=== PATIENT | female | born 1965 | race Caucasian/White ===

== ENCOUNTER 2018-03-13 21:34 | Emergency (ER) | payer OTHER ==
[~2018-03-13] VITALS: Ht 162.6 cm; Wt 128.8 kg
[2018-03-13 23:28] LABS: ABSOLUTE NEUTROPHILS 3.8 thou/uL (1.4-8.2); BASOPHILS 0.5 % (0.0-2.0); EOSINOPHILS 1.7 % (0.0-3.0); HEMATOCRIT 38.4 % (37.0-47.0); LYMPHOCYTES 36.2 % (24.0-44.0); MCH 29.5 pg (26.0-34.0); MCHC 33.9 g/dL (28.0-37.0); MCV 86.9 fL (80.0-100.0); MONOCYTES 8.2 % (1.0-8.0); PLATELET COUNT 227 thou/uL (150-400); POLYS 53.4 % (36.0-66.0); RBC 4.42 mil/uL (4.20-5.00); RDW 13.5 % (10.5-14.5); WBC 7.2 thou/uL (4.0-11.0)
[2018-03-13 23:39] LABS: CREATININE 0.9 mg/dL (0.6-1.0); POTASSIUM 3.5 mmol/L (3.5-5.1)
[2018-03-14 00:36] VITALS: BP 168/87
[2018-03-14] MEDS ORDERED: CLONIDINE0.1 PO (17:33)
== END 2018-03-14 00:38 | disposition home or self-care (01) ==
LOC: ER 21:34
PROVIDERS: Emergency Medicine
DX: G43.909 Migraine, unspecified, not intractable, without status migrainosus (principal); I10 Essential (primary) hypertension; F17.210 Nicotine dependence, cigarettes, uncomplicated; Z88.2 Allergy status to sulfonamides

== ENCOUNTER 2018-03-14 17:13 | Emergency (ER) | payer OTHER ==
[~2018-03-14] VITALS: Ht 162.6 cm; Wt 127.9 kg
[2018-03-14] MEDS ORDERED: CLONIDINE0.1 PO (17:33)
[2018-03-14 18:08] VITALS: BP 176/91
== END 2018-03-14 18:12 | disposition home or self-care (01) ==
LOC: ER 17:13
DX: I10 Essential (primary) hypertension (principal); G43.909 Migraine, unspecified, not intractable, without status migrainosus; E66.9 Obesity, unspecified; Z68.42 Body mass index [BMI] 45.0-49.9, adult; F17.210 Nicotine dependence, cigarettes, uncomplicated; Z98.890 Other specified postprocedural states

== ENCOUNTER 2018-08-27 14:53 | Emergency (ER) | payer OTHER ==
[~2018-08-27] VITALS: Ht 162.6 cm; Wt 136.1 kg
[~2018-08-27 14:53] MED LIST: CLONIDINE0.1 PO
[2018-08-27 15:28] LABS: ABSOLUTE NEUTROPHILS 6.8 thou/uL (1.4-8.2); BASOPHILS 0.2 % (0.0-2.0); EOSINOPHILS 0.8 % (0.0-3.0); HEMATOCRIT 41.4 % (37.0-47.0); HEMOGLOBIN 13.9 gm/dL (12.0-15.0); LYMPHOCYTES 17.2 % (24.0-44.0); MCH 29.8 pg (26.0-34.0); MCHC 33.6 g/dL (28.0-37.0); MCV 88.8 fL (80.0-100.0); MONOCYTES 6.5 % (1.0-8.0); PLATELET COUNT 242 thou/uL (150-400); POLYS 75.3 % (36.0-66.0); RBC 4.66 mil/uL (4.20-5.00)
[2018-08-27 15:35] LABS: ANION GAP 8 mmol/L (7-16); BUN 11 mg/dL (7-18); CALCIUM 8.6 mg/dL (8.5-10.1); CHLORIDE 101 mmol/L (98-107); CO2 28 mmol/L (21-32); CREATININE 0.9 mg/dL (0.6-1.0); GLUCOSE 173 mg/dL (74-106); SODIUM 137 mmol/L (136-145)
[2018-08-27 15:44] LABS: ALBUMIN 3.1 g/dL (3.4-5.0); SGOT 22 U/L (15-37); SGPT 39 U/L (30-65); TOTAL BILIRUBIN 0.4 mg/dL (<0.1-1.0); TOTAL PROTEIN 6.8 g/dL (6.4-8.2); TROPONIN-I <0.06 ng/mL (<0.06)
[2018-08-27] MEDS ORDERED: ANTIVERT25 MG PO (15:51)
[2018-08-27] MEDS ORDERED: METFORMIN HCL500 MG PO (15:51)
[2018-08-27] MEDS ORDERED: NEURONTIN 300300 M1 PO (15:52)
[2018-08-27] MEDS ORDERED: PROZAC20 MG PO (15:52)
[2018-08-27] MEDS ORDERED: LISINOPRIL20 MG PO (15:52)
[2018-08-27] MEDS ORDERED: AZITHROMYCIN250 MG PO (17:23)
[2018-08-27 17:49] VITALS: BP 151/75
--- NOTE | 2018-08-29 15:02 | EKG ---
[place] [address] [address] [place] [address] ELECTROCARDIOGRAM REPORT Name: ALIZA ARIZMENDI [facility] [id number] Admission: 08/27/18 Attend Phys: Discharge: 08/27/18 Date of : 61 Report #: [id number] THIS REPORT FOR: //name// [facility] ED Test Date: 2018-08-27 Test Time: 15:03:35 Pat Name: ALIZA ARIZMENDI Department: Room: Gender: F It Audit Manager: : 1965 Requested By: Leatha Agarwal Order Number: [id number] MD: Rakesh Lazaro Measurements Intervals [place] Rate: 51 P: 20 [place]: 176 QRS: -12 QRSD: 100 T: 22 QT: 416 QTc: 384 Interpretive Statements Sinus rhythm Probable left atrial enlargement Low voltage, precordial leads RSR' in V1 or V2, right VCD or RVH No previous ECG available for comparison Electronically Signed On 08-29-2018 15:02:42 PRODUCTION STATISTICAL CLERK by Rakesh Lazaro [email or web address] <ELECTRONICALLY SIGNED> By: Rakesh Lazaro MD 08/29/18 1502 1503 1503 Rakesh Lazaro MD /KAITLIN
== END 2018-08-27 17:50 | disposition home or self-care (01) ==
LOC: ER 14:53
PROVIDERS: Emergency Medicine
DX: J18.9 Pneumonia, unspecified organism (principal); I10 Essential (primary) hypertension; F17.210 Nicotine dependence, cigarettes, uncomplicated

== ENCOUNTER 2019-02-22 14:45 | Emergency (ER) | payer OTHER ==
[~2019-02-22] VITALS: Ht 157.5 cm; Wt 135.2 kg
[~2019-02-22 14:45] MED LIST changes: +ANTIVERT25 MG PO; +AZITHROMYCIN250 MG PO; +LISINOPRIL20 MG PO; +METFORMIN HCL500 MG PO; +NEURONTIN 300300 M1 PO; +PROZAC20 MG PO
[2019-02-22 18:48] VITALS: BP 103/57
== END 2019-02-22 18:50 | disposition home or self-care (01) ==
LOC: ER 14:45
DX: S09.8XXA Other specified injuries of head, initial encounter (principal); M54.5 Low back pain; F17.210 Nicotine dependence, cigarettes, uncomplicated; I10 Essential (primary) hypertension; Z88.2 Allergy status to sulfonamides; Z98.890 Other specified postprocedural states; W18.39XA Other fall on same level, initial encounter; Y92.89 Other specified places as the place of occurrence of the external cause; Y93.89 Activity, other specified; Y99.8 Other external cause status

== ENCOUNTER 2019-03-24 15:36 | Emergency (ER) | payer OTHER ==
[~2019-03-24] VITALS: Ht 157.5 cm; Wt 135.2 kg
[~2019-03-24 15:36] MED LIST changes: +CELEXA40 MG PO; +LIPITOR10 MG PO; +LOPRESSOR25 PO; +PRAZOSIN 1 MG CA1 M1 PO; +TRAZODONE HCL100 MG PO
[2019-03-24] MEDS ORDERED: NAPROSYN500 MG PO (17:02)
[2019-03-24] MEDS ORDERED: REGLAN 10 MG TA10 MG PO (17:02)
[2019-03-24 18:50] VITALS: BP 120/76
== END 2019-03-24 18:50 | disposition home or self-care (01) ==
LOC: ER 15:36
DX: G43.909 Migraine, unspecified, not intractable, without status migrainosus (principal); I10 Essential (primary) hypertension; F41.9 Anxiety disorder, unspecified; R42 Dizziness and giddiness; F32.9 Major depressive disorder, single episode, unspecified; F43.10 Post-traumatic stress disorder, unspecified; F17.210 Nicotine dependence, cigarettes, uncomplicated; E11.9 Type 2 diabetes mellitus without complications; Z79.84 Long term (current) use of oral hypoglycemic drugs; Z79.899 Other long term (current) drug therapy; Z88.2 Allergy status to sulfonamides

== ENCOUNTER 2019-04-16 21:24 | Emergency (ER) | payer OTHER ==
[~2019-04-16] VITALS: Ht 162.6 cm; Wt 136.1 kg
[~2019-04-16 21:24] MED LIST changes: +NAPROSYN500 MG PO; +REGLAN 10 MG TA10 MG PO
[2019-04-16] MEDS ORDERED: PROMS25 WY RECTAL (23:27)
[2019-04-16] MEDS ORDERED: BUTALB-APAP-CA1 EACH PO (23:27)
[2019-04-16 23:39] VITALS: BP 127/85
== END 2019-04-16 23:40 | disposition home or self-care (01) ==
LOC: ER 21:24
DX: G43.109 Migraine with aura, not intractable, without status migrainosus (principal); R11.2 Nausea with vomiting, unspecified; F17.210 Nicotine dependence, cigarettes, uncomplicated; I10 Essential (primary) hypertension; E78.5 Hyperlipidemia, unspecified; E11.9 Type 2 diabetes mellitus without complications; E66.01 Morbid (severe) obesity due to excess calories; Z88.2 Allergy status to sulfonamides; Z79.899 Other long term (current) drug therapy; Z98.890 Other specified postprocedural states

== ENCOUNTER 2019-05-05 21:33 | Emergency (ER) | payer OTHER ==
[~2019-05-05] VITALS: Ht 162.6 cm; Wt 135.2 kg
[~2019-05-05 21:33] MED LIST changes: +BUTALB-APAP-CA1 EACH PO; +PROMS25 WY RECTAL
[2019-05-05] MEDS ORDERED: BUTALB-APAP-CA1 EACH PO (23:00)
[2019-05-05] MEDS ORDERED: ONDANSETRON HCL4 M2 PO (23:00)
[2019-05-06 00:09] VITALS: BP 123/53
== END 2019-05-06 00:10 | disposition home or self-care (01) ==
LOC: ER 21:33
DX: G43.909 Migraine, unspecified, not intractable, without status migrainosus (principal); R11.2 Nausea with vomiting, unspecified; I10 Essential (primary) hypertension; E78.5 Hyperlipidemia, unspecified; F41.9 Anxiety disorder, unspecified; F32.9 Major depressive disorder, single episode, unspecified; E11.9 Type 2 diabetes mellitus without complications; E66.01 Morbid (severe) obesity due to excess calories; F17.210 Nicotine dependence, cigarettes, uncomplicated; Z98.890 Other specified postprocedural states; Z68.43 Body mass index [BMI] 50.0-59.9, adult; Z88.2 Allergy status to sulfonamides

== ENCOUNTER 2019-06-01 21:03 | Inpatient (IN) | payer OTHER ==
[~2019-06-01] VITALS: Ht 157.5 cm; Wt 136.7 kg
[~2019-06-01 21:03] MED LIST changes: +ONDANSETRON HCL4 M2 PO
[2019-06-01 21:10] VITALS: BP 161/60
[2019-06-01 21:58] LABS: ABSOLUTE NEUTROPHILS 4.9 thou/uL (1.4-8.2); BASOPHILS 0.2 % (0.0-2.0); EOSINOPHILS 1.3 % (0.0-3.0); HEMATOCRIT 42.8 % (37.0-47.0); MCH 29.3 pg (26.0-34.0); MCHC 32.7 g/dL (28.0-37.0); MCV 89.6 fL (80.0-100.0); MONOCYTES 10.4 % (1.0-8.0); PLATELET COUNT 230 thou/uL (150-400); POLYS 60.1 % (36.0-66.0); RBC 4.78 mil/uL (4.20-5.00); RDW 13.3 % (10.5-14.5); WBC 8.2 thou/uL (4.0-11.0)
[2019-06-01 22:05] LABS: CALCIUM 8.9 mg/dL (8.5-10.1); CREATININE 0.9 mg/dL (0.6-1.0); POTASSIUM 3.7 mmol/L (3.5-5.1)
[2019-06-01 22:15] LABS: ALBUMIN 3.4 g/dL (3.4-5.0); MAGNESIUM 1.7 mg/dL (1.8-2.4); TOTAL BILIRUBIN 0.2 mg/dL (<0.1-1.0); TOTAL PROTEIN 7.1 g/dL (6.4-8.2); TROPONIN-I 0.08 ng/mL (<0.06)
[2019-06-01] MEDS ORDERED: REGLAN 10 MG TA10 MG PO (22:26)
[2019-06-01] MEDS ORDERED: BUTALB-APAP-CA1 EACH PO (22:26)
[2019-06-02] VITALS (7 sets, daily range): BP systolic 126–149; BP diastolic 45–75
--- NOTE | 2019-06-02 00:51 | NUR ---
GAVE PT A DINNER BOX, DIET MACIEL, AND A CUP OF ICE CHIPS. OK'ED PER DOCTOR LUIGI
[2019-06-02 04:25] LABS: ANION GAP 7 mmol/L (7-16); BUN 10 mg/dL (7-18); CALCIUM 8.2 mg/dL (8.5-10.1); CHLORIDE 105 mmol/L (98-107); CHOLESTEROL 152 mg/dL (<200); CO2 27 mmol/L (21-32); CREATININE 0.9 mg/dL (0.6-1.0); GLUCOSE 154 mg/dL (74-106); HDL CHOLESTEROL 29 mg/dL (>40); LDL CHOLESTEROL 71 mg/dL (<100); POTASSIUM 3.8 mmol/L (3.5-5.1); SODIUM 139 mmol/L (136-145); TC:HDL 5.2 Ratio (Not establshd); TRIGLYCERIDE 260 mg/dL (<150); TROPONIN-I 0.07 ng/mL (<0.06); VLDL 52 mg/dL (<40)
[2019-06-02 04:28] LABS: SERUM ASSESSMENT Clear
--- NOTE | 2019-06-02 06:26 | NUR ---
Arrived from ER around 0237. Denies any chest discomfort since arrival on the floor. Tolerating room air well though verbalized shortness of breath with minminal exertion. Had some nausea and dry heaving prior to admission but none since. Bed alarm on for safety. Up with assist to bathroom to void. Instructed NPO per order. Cardiology consult to be called this am.
--- NOTE | 2019-06-02 14:11 | EKG ---
[place] [address] [address] [place] [place] [address] ELECTROCARDIOGRAM REPORT Name: ALIZA ARIZMENDI GREGORIA Room #: 363-P ADM IN M.R.#: [id number] Admission: 06/02/19 Attend Phys: Syed Douglass Discharge: Date of : 61 Report #: [id number] THIS REPORT FOR: //name// [facility] ED Test Date: 2019-06-01 Test Time: 21:06:19 Pat Name: ALIZA ARIZMENDI Department: Room: 363 Gender: F Club Licensee: SUZY : 1965 Requested By: Jung Moore Order Number: [id number] MD: Rakesh Lazaro Measurements Intervals [place] Rate: 62 P: 36 ND: 184 QRS: 15 QRSD: 167 T: 13 QT: 460 QTc: 468 Interpretive Statements Sinus rhythm Right bundle branch block Compared to ECG 03/06/2019 23:48:33 Right bundle-branch block now present Sinus bradycardia no longer present Electronically Signed On 06-02-2019 14:11:02 CDT by Rakesh Lazaro [email or web address] <ELECTRONICALLY SIGNED> By: Rakesh Lazaro MD 06/02/19 1411 05 05 Rakesh Lazaro MD /EPI
--- NOTE | 2019-06-02 14:14 | EKG ---
[address] [place] [address] ELECTROCARDIOGRAM REPORT Name: KYLEIGHALIZA KINNEY Room #: 363-P ADM IN M.R.#: [id number] Admission: 06/02/19 Attend Phys: Syed Douglass Discharge: Date of : 61 Report #: [id number] THIS REPORT FOR: //name// [facility] Test Date: 2019-06-02 Test Time: 07:56:56 Pat Name: ALIZA ARIZMENDI Department: Room: 363 Gender: F Hospital Ward Clerk: ASHLEY : 1965 Requested By: Kate Mcclendon Order Number: [id number] MD: Rakesh Lazaro Measurements Intervals [place] Rate: 48 P: 37 [place]: 189 QRS: -12 QRSD: 105 T: 23 QT: 473 QTc: 423 Interpretive Statements Sinus bradycardia Low voltage, precordial leads Compared to ECG 03/06/2019 23:48:33 Low QRS voltage now present Electronically Signed On 06-02-2019 14:13:48 CDT by Rakesh Lazaro [email or web address] <ELECTRONICALLY SIGNED> By: Rakesh Lazaro MD 06/02/19 1413 0756 075 Rakesh Lazaro MD /KAITLIN
--- NOTE | 2019-06-02 17:52 | CATHLAB ---
[facility] [address] [place] [address] INVASIVE PROCEDURE REPORT Name: ALIZA ARIZMENDI Room #: 363-P ADM IN M.R.#: [id number] Admission: 06/02/19 Attend Phys: Syed Redman Discharge: Date of : 61 Report #: [id number] THIS REPORT FOR: //name// APPROVED REPORT Study performed: 06/02/2019 09:22:42 Patient Details Patient Status: In-Patient Room #: The patient is a 53 year-old female Event Personnel Abdiel Owusu [employer] Rental Dispatcher, Fallon Carson RN RN, Axel Giraldo Mahmood, Amber Monitor, Stephy Loyola RTR Monitor Procedures Performed Art Access - R femoral artery* Francisco Access - R femoral vein Right and Left Heart Cath w/or w/o Coronarie [id number] [facility] Aortogram Abdominal Peripheral Angio 353427 Hemostasis w/ Mynx 25643 Initial Mod Sed Same Phys/QHP Gr5y 438770 77774 Mod Sed Same Phys/QHP Ea 086060 Indication Chest pain Procedure Narrative The Right Groin^ was infiltrated with 1% Lidocaine subcutaneous anesthesia. A Right Heart Catheterization was performed with a 7 Fr. Irrigon-Kamilah catheter and pressure were recorded. Cardiac outputs were obtained by the Thermal Dilution method. A PINNACLE 6FR Sheath #[id number] sheath was inserted into the RFA^. Coronary angiography was performed using coronary diagnostic catheters. The right coronary system was accessed and visualized with a JR4 catheter. The left coronary system was accessed and visualized with a JL4 catheter. The left ventricle was accessed and visualized with a pigtail catheter. Left ventriculogram was performed in BURNS projection. An aortogram of the abdominal aorta was performed. Pre-demployment femoral angiogram was performed . Closure device was deployed with a Fr MYNXGRIP 6/7F #[id number]. Hemostasis was obtained with manual pressure following sheath removal without any complications. The patient tolerated the procedure well and there were no complications associated with the procedure. There was no hematoma. Intraoperative Conscious Sedation [facility] [address] [place] [address] INVASIVE PROCEDURE REPORT Name: KYLEIGHALIZA KINNEY Room #: 363-P [facility] IN .R.#: [id number] Admission: 06/02/19 Attend Phys: Syed Redman Discharge: Date of : 61 Report #: [id number] Sedation start time: 9:32 Case end Time: 10:01 Fentanyl 100 mcg Versed 2 mg Fluoro Time: 3.12 minutes Dose: DAP 7567.60 cGycm2 706 mGy Contrast Type and Amount: Omnipaque 110 ml Hemodynamics The right atrial mean pressure is 26 mmHg. The right ventricular pressure is 62/0 mmHg. The pulmonary artery pressure is 58/33 mmHg with a mean of 41 mmHg. The mean pulmonary capillary wedge pressure is 30 mmHg. The aortic pressure is 135/81 mmHg with a mean of mmHg. The left ventricular pressure is 144/14 mmHg with a mean of mmHg. The left ventricular end diastolic pressure is 30 mmHg. The cardiac output using thermo method is 4.65 L/min. The cardiac index using thermo method is 2.05 L/min/m2. Conclusion #1 successful right heart catheterization see above hemodynamics cardiac output by thermodilution. #2 left jugular size and systolic function EF 60% #3 abdominal aortogram is intact with mild irregularities involving the ostial of the renal arteries no aneurysm is noted #4 normal coronary anatomy in a predominantly dominant left sided system no occlusive disease is noted Recommendations and plan: Continue aggressive risk factor modification. We'll be more aggressive diuresis. Heart failure sonic basis of diastolic dysfunction predominantly obesity and sleep apnea. <ELECTRONICALLY SIGNED> By: Abdiel Owusu MD, FACC 06/02/191750 50 50 Abdiel Owusu MD, FACC /INF
--- NOTE | 2019-06-02 18:38 | NUR ---
ASSUMED CARE OF PATIENT AT 0700. PATIENT ALERT AND ORIENTED. PATIENT REMAINED STABLE DURING SHIFT. PATIENT HAD HEART CATHERIZATION WITH NO INTERVENTIONAL FINDINGS. PATIENT SHOWED NO SIGNS OF BLEEDING. PATIENT COMPLAINED OF PAIN AFTER AND DOCTOR ORDERED TORADOL. PATIENT COMPLAINED THAT PAIN WASNT MANAGED SO HYDROCODONE WAS ORDERED. WHEN IT WAS ORDERED PATIENT WAS SLEEPING SO IT WAS NOT GIVEN. PATIENT DID NOT HAVE ANY CHEST PAIN DURING SHIFT.
[2019-06-03 00:06] LABS: GLYCOHEMOGLOBIN (HGB A1C) 6.9 % (4.8-5.6)
--- NOTE | 2019-06-03 03:32 | NUR ---
no chest pain tonight. resting quietly. she calls approp when needing to get out of bed. she had a snack at bedtime with a borderline low blood glucose. resting. careplan revewied.
[2019-06-03 04:11] VITALS: BP 141/66
[2019-06-03 06:32] LABS: CALCIUM 8.9 mg/dL (8.5-10.1); CREATININE 1.1 mg/dL (0.6-1.0); POTASSIUM 4.9 mmol/L (3.5-5.1)
[2019-06-03 07:49] VITALS: BP 147/79
[2019-06-03] MEDS ORDERED: LIPITOR 20 MG T20 M1 PO (09:23)
[2019-06-03] MEDS ORDERED: HYDROCODON-ACE1 EAC7 PO (09:24)
[2019-06-03] MEDS ORDERED: BENICAR40 MG PO (09:27)
[2019-06-03] MEDS ORDERED: DEMADEX20 MG PO (09:27)
[2019-06-03 10:36] VITALS: BP 147/79
[2019-06-03 11:21] VITALS: BP 122/80
[2019-06-03 11:49] VITALS: BP 147/79
--- NOTE | 2019-06-03 11:50 | NUR ---
DISCHARGE INSTRUCTIONS REVIEWED WITH PATIENT AND HER FAMILY IN ROOM. SCRIPTS CALLED TO [facility]. NARCOTIC SCRIPT GIVEN TO PATIENT. SHE DENIED FURTHER QUESTIONS. IV WAS REMOVED BY FUN HOUSE ATTENDANT WITHOUT DIFFICULTY.
== END 2019-06-03 11:49 | disposition home or self-care (01) | DRG 287 ==
LOC: ER 21:03 → EROBS 06-02 00:50 → 3W 06-02 00:50
PROVIDERS: Emergency Medicine; Internal Medicine Cardiovascular Disease; Nurse Practitioner Adult Health; Nurse Practitioner Family; ADMIT Hospitalist
PROC: B4101ZZ Fluoroscopy of Abdominal Aorta using Low Osmolar Contrast (ICD-10-PCS; principal; 2019-06-02)
PROC: B2151ZZ Fluoroscopy of Left Heart using Low Osmolar Contrast (ICD-10-PCS; principal; 2019-06-02)
PROC: 4A023N8 Measurement of Cardiac Sampling and Pressure, Bilateral, Percutaneous Approach (ICD-10-PCS; principal; 2019-06-02)
PROC: B41F1ZZ Fluoroscopy of Right Lower Extremity Arteries using Low Osmolar Contrast (ICD-10-PCS; principal; 2019-06-02)
PROC: B2111ZZ Fluoroscopy of Multiple Coronary Arteries using Low Osmolar Contrast (ICD-10-PCS; principal; 2019-06-02)
DX: I25.10 Atherosclerotic heart disease of native coronary artery without angina pectoris (principal); Z68.43 Body mass index [BMI] 50.0-59.9, adult; G43.909 Migraine, unspecified, not intractable, without status migrainosus; I10 Essential (primary) hypertension; F41.9 Anxiety disorder, unspecified; F32.9 Major depressive disorder, single episode, unspecified; E78.5 Hyperlipidemia, unspecified; E11.9 Type 2 diabetes mellitus without complications; E66.01 Morbid (severe) obesity due to excess calories; F43.10 Post-traumatic stress disorder, unspecified; X58.XXXA Exposure to other specified factors, initial encounter; F12.90 Cannabis use, unspecified, uncomplicated; E78.00 Pure hypercholesterolemia, unspecified; I16.0 Hypertensive urgency; E78.1 Pure hyperglyceridemia; I27.20 Pulmonary hypertension, unspecified; G47.33 Obstructive sleep apnea (adult) (pediatric); Z23 Encounter for immunization; Z88.2 Allergy status to sulfonamides; Y93.89 Activity, other specified; Y92.89 Other specified places as the place of occurrence of the external cause; Y99.8 Other external cause status; Z71.6 Tobacco abuse counseling; Z95.5 Presence of coronary angioplasty implant and graft; I25.2 Old myocardial infarction; Z82.49 Family history of ischemic heart disease and other diseases of the circulatory system; Z82.3 Family history of stroke
CPT/HCPCS: 10879

== ENCOUNTER 2019-06-05 01:28 | Emergency (ER) | payer OTHER ==
[~2019-06-05 01:28] MED LIST changes: +BENICAR40 MG PO; +DEMADEX20 MG PO; +HYDROCODON-ACE1 EAC7 PO; +LIPITOR 20 MG T20 M1 PO
== END 2019-06-05 02:15 | disposition left against medical advice (07) ==
LOC: ER 01:28
DX: Z53.21 Procedure and treatment not carried out due to patient leaving prior to being seen by health care provider (principal)

== ENCOUNTER 2019-06-07 12:42 | Emergency (ER) | payer OTHER ==
[~2019-06-07] VITALS: Ht 157.5 cm; Wt 136.1 kg
[2019-06-07 12:51] VITALS: BP 125/73
[2019-06-07] MEDS ORDERED: VOLTAREN GEL 1100 G2 TOP (13:13)
== END 2019-06-07 13:26 | disposition home or self-care (01) ==
LOC: ER 12:42
DX: T82.847A Pain due to cardiac prosthetic devices, implants and grafts, initial encounter (principal); I97.630 Postprocedural hematoma of a circulatory system organ or structure following a cardiac catheterization; M25.562 Pain in left knee; M25.561 Pain in right knee; I10 Essential (primary) hypertension; G43.909 Migraine, unspecified, not intractable, without status migrainosus; E78.5 Hyperlipidemia, unspecified; E11.9 Type 2 diabetes mellitus without complications; F41.9 Anxiety disorder, unspecified; F32.9 Major depressive disorder, single episode, unspecified; E66.01 Morbid (severe) obesity due to excess calories; F17.210 Nicotine dependence, cigarettes, uncomplicated; Z68.43 Body mass index [BMI] 50.0-59.9, adult; Z98.890 Other specified postprocedural states; Z88.2 Allergy status to sulfonamides

== ENCOUNTER 2020-12-27 18:41 | Emergency (ER) | payer OTHER ==
[~2020-12-27] VITALS: Ht 157.5 cm; Wt 120.2 kg
[~2020-12-27 18:41] MED LIST changes: +VOLTAREN GEL 1100 G2 TOP
[2020-12-27] MEDS ORDERED: IBUPROFEN 800800 MG PO (19:52)
[2020-12-27] MEDS ORDERED: TYLENOL325 M1 PO (19:52)
[2020-12-27 20:20] VITALS: BP 142/88
== END 2020-12-27 20:20 | disposition home or self-care (01) ==
LOC: ER 18:41
DX: S93.401A Sprain of unspecified ligament of right ankle, initial encounter (principal); I10 Essential (primary) hypertension; G43.909 Migraine, unspecified, not intractable, without status migrainosus; E78.5 Hyperlipidemia, unspecified; E11.9 Type 2 diabetes mellitus without complications; F17.210 Nicotine dependence, cigarettes, uncomplicated; Z88.2 Allergy status to sulfonamides; X50.1XXA Overexertion from prolonged static or awkward postures, initial encounter; Y93.89 Activity, other specified; Y92.89 Other specified places as the place of occurrence of the external cause; Y99.8 Other external cause status